=== PATIENT | female | born 1960 | race Caucasian/White ===

== ENCOUNTER 2022-08-22 14:11 | Inpatient (IN) | payer MEDICARE, OTHER ==
[~2022-08-22] VITALS: Ht 157.5 cm; Wt 46.3 kg
--- NOTE | 2022-08-22 14:15 | NUR ---
RECEVED PT 62 YRS FEMALE CAME FROM OUT SIDE LAB FOR SYNCOPY AWAKE AND ALERT
--- NOTE | 2022-08-22 14:35 | NUR ---
INSERTED ANGO CATHETER G 20 ON LT AC BLOOD DROW AND SENT TO LAB
[2022-08-22] MEDS ORDERED: PANTOPRAZOLE 80 MG in IV NS 0.9% 500 ML IV ONE (15:30)
--- NOTE | 2022-08-22 16:00 | NUR ---
STARTED PROTONEX DRIP 8MG/HR AT 52 ML/HR
[2022-08-22 16:01] LABS: BASOPHILS % (AUTO) 0.3 % (0.0-2.0); EOSINOPHILS % (AUTO) 0.1 % (0.0-6.0); LYMPHOCYTES # (AUTO) 1.4 K/uL (0.8-4.8); LYMPHOCYTES % (AUTO) 21.7 % (20.0-44.0); MEAN CORPUSCULAR HGB CONC 34 g/dl (31.0-36.0); MEAN CORPUSCULAR VOLUME 88 fL (82-100); MONOCYTES # (AUTO) 0.6 K/uL (0.1-1.30); MONOCYTES % (AUTO) 9.5 % (2.0-12.0); NEUTROPHILS # (AUTO) 4.4 K/uL (1.8-8.9); NEUTROPHILS % (AUTO) 68.4 % (43.0-81.0); PLATELET COUNT (AUTO) 84 K/uL (150-450); WHITE BLOOD COUNT (AUTO) 6.5 K/uL (4.3-11.0)
[2022-08-22 16:33] LABS: CALCIUM, SERUM 7.7 mg/dL (8.5-10.1); CARBON DIOXIDE 36 mmol/L (21-32); CHLORIDE 96 mmol/L (98-107); GLUCOSE 122 mg/dL (74-106); POTASSIUM 3.6 mmol/L (3.5-5.1); SODIUM SERUM 134 mmol/L (136-145); UREA NITROGEN, BLOOD 31 mg/dL (7-18)
--- NOTE | 2022-08-22 16:43 | NUR ---
MOVE SHEET SUBMITTED.
[2022-08-22 16:44] LABS: HEMATOCRIT 15 % (33-45)
[2022-08-22 16:45] LABS: ALANINE AMINOTRANSFERASE 81 U/L (12-78); ALKALINE PHOSPHATASE 103 U/L (46-116); ASPARTATE AMINOTRANSFERASE 148 U/L (15-37); BILIRUBIN,TOTAL 5.5 mg/dL (0.2-1.0); HEMOGLOBIN 5.1 g/dL (11.5-14.8); TOTAL PROTEIN, SERUM 6.1 g/dL (6.4-8.2)
[2022-08-22 16:47] LABS: ALBUMIN 1.4 g/dL (3.4-5.0)
--- NOTE | 2022-08-22 16:59 | NUR ---
COVID SWAB SENT TO LAB
[2022-08-22] MEDS ORDERED: MVI,10VI2 IV (17:01)
[2022-08-22] MEDS ORDERED: DIPH1TAB PO (17:01)
[2022-08-22] MEDS ORDERED: FAMO10VI IV (17:01)
[2022-08-22] MEDS ORDERED: CHOL100043 PO (17:01)
[2022-08-22] MEDS ORDERED: ALBU18HF2 IH (17:01)
[2022-08-22] MEDS ORDERED: POLY15DR40 EACHEYE (17:01)
[2022-08-22] MEDS ORDERED: TPN ADD IV (17:01)
[2022-08-22] MEDS ORDERED: [UNRECOGNIZED DRUG - CODE] IV (17:01)
[2022-08-22] MEDS ORDERED: CETI-108 PO (17:01)
[2022-08-22] MEDS ORDERED: Z GUARD REMEDY 4 OZ OINT TP PRN (18:00)
[2022-08-22] MEDS ORDERED: MAG HYDROX/AL HYDROX/SIMETH 30 ML UDC PO PRN (18:00)
[2022-08-22] MEDS ORDERED: OCTREOTIDE 500 MCG in IV NS 0.9% 99 ML IV PRN (18:00)
[2022-08-22] MEDS ORDERED: ONDANSETRON HCL/PF 4 MG/2 ML VIAL IVP PRN (18:00)
[2022-08-22] MEDS ORDERED: cetrizine 10 MG TABLET PO PRN (18:00)
[2022-08-22] MEDS ORDERED: MAGNESIUM HYDROXIDE 30 ML UDC PO PRN (18:00)
[2022-08-22] MEDS ORDERED: DIPHENOXYLATE HCL/ATROP SULF 1 UDTAB TABLET PO PRN (18:00)
--- NOTE | 2022-08-22 18:20 | NUR ---
FOR PT SIGN CONSENT FOR BLOOD TRANSFUTION
[2022-08-22] MEDS ORDERED: ALBUTEROL SULFATE 8 GM HFA.AER.AD IH PRN (19:00)
--- NOTE | 2022-08-22 19:29 | NUR ---
WATING FOR MONITER BED
[2022-08-22 20:12] LABS: BAND % (MANUAL) 1 % (0.0-5.0); LYMPHOCYTES % (MANUAL) 20 % (16-48); MONOCYTES % (MANUAL) 7 % (0-11.0); NEUTROPHILS % (MANUAL) 72 (42-76)
--- NOTE | 2022-08-22 23:00 | NUR ---
BLOOD TRANSFUSION COMPLETED, PATIENT STABLE STILL HYPOTENSIVE, ASSYMPTOMATIC.
[2022-08-23] MEDS ORDERED: PANTOPRAZOLE 40 MG VIAL ONE ×2 (00:03→09:25)
[2022-08-23] MEDS: PANTOPRAZOLE 40 MG VIAL IV SCH ×3 (00:05→20:44)
[2022-08-23 01:32] LABS: HEMOGLOBIN 5.7 g/dL (11.5-14.8)
--- NOTE | 2022-08-23 01:32 | NUR ---
h/h 5.7/17
--- NOTE | 2022-08-23 05:00 | NUR ---
SECOND BLOOD TRANSFUSION INITIATED. VSS NO FEVER NOTED
[2022-08-23 05:04] LABS: BASOPHILS % (AUTO) 0.4 % (0.0-2.0); EOSINOPHILS % (AUTO) 0.1 % (0.0-6.0); LYMPHOCYTES # (AUTO) 1.6 K/uL (0.8-4.8); LYMPHOCYTES % (AUTO) 32.7 % (20.0-44.0); MEAN CORPUSCULAR HGB CONC 35 g/dl (31.0-36.0); MEAN CORPUSCULAR VOLUME 87 fL (82-100); MONOCYTES # (AUTO) 0.5 K/uL (0.1-1.30); MONOCYTES % (AUTO) 10.3 % (2.0-12.0); NEUTROPHILS # (AUTO) 2.8 K/uL (1.8-8.9); NEUTROPHILS % (AUTO) 56.5 % (43.0-81.0); PLATELET COUNT (AUTO) 69 K/uL (150-450); WHITE BLOOD COUNT (AUTO) 4.9 K/uL (4.3-11.0)
[2022-08-23 05:19] LABS: RED BLOOD CELL COUNT(AUTO) 1.93 MIL/uL (4.0-5.2)
[2022-08-23 05:20] LABS: HEMATOCRIT 17 % (33-45); HEMOGLOBIN 5.8 g/dL (11.5-14.8)
[2022-08-23 05:32] LABS: CALCIUM, SERUM 7.2 mg/dL (8.5-10.1); CREATININE 0.8 mg/dL (0.6-1.3); MAGNESIUM 2.1 mg/dL (1.8-2.4); PHOSPHORUS 4.1 mg/dL (2.5-4.9); POTASSIUM 3.5 mmol/L (3.5-5.1)
--- NOTE | 2022-08-23 05:45 | NUR ---
TOLERATING BLOOD TRANSFUSION NO COMPLAINTS
--- NOTE | 2022-08-23 06:29 | NUR ---
PATIENT RESTING COMFORTABLY NO COMPLAINTS AT THIS TIME.
--- NOTE | 2022-08-23 07:15 | NUR ---
RECEIVED PT FROM [facility] PT AWAKE AND ALERT NO SOB WATING FOR ROOM
--- NOTE | 2022-08-23 08:00 | NUR ---
PROVIDER AT BED SIDE SPOOKING WITH PT ABOUT PLAN OF CARE
[2022-08-23] MEDS ORDERED: TPN/PPN PER PHARMACY IV PRN (09:00)
[2022-08-23] MEDS ORDERED: ACETAMINOPHEN 325 MG TABLET ONE (09:24)
[2022-08-23] MEDS: ACETAMINOPHEN 325 MG TABLET PO PRN (09:28)
--- NOTE | 2022-08-23 10:00 | NUR ---
PT CONDITION STABLE NO SOB OR DISTRESS PT HAD COLOSTOMY BAG
[2022-08-23] MEDS ORDERED: DEXTROSE 50%-WATER 50 ML DISP.SYRIN IV PRN (10:30)
[2022-08-23] MEDS ORDERED: TPN#1 IV SCH ×3 (11:00)
--- NOTE | 2022-08-23 11:00 | NUR ---
WATING FOR TELMETRY BED
--- NOTE | 2022-08-23 11:49 | NUR ---
STARITED PT ON TPN WITH FILTER TUBE AT 75 ML/HR INFUSED AND PATENT
[2022-08-23] MEDS: BLOOD SUGAR DIAGNOSTIC 1 EACH STRIP IN SCH ×2 (11:56→17:37)
--- NOTE | 2022-08-23 11:58 | NUR ---
BLOODDROW FOR REPEAT CBC
--- NOTE | 2022-08-23 12:05 | NUR ---
GOT BED 111-1. NURSE WILL BE YINKA
[2022-08-23 12:29] LABS: BASOPHILS % (AUTO) 0.4 % (0.0-2.0); EOSINOPHILS % (AUTO) 0.3 % (0.0-6.0); HEMATOCRIT 23 % (33-45); HEMOGLOBIN 8.1 g/dL (11.5-14.8); LYMPHOCYTES # (AUTO) 1.3 K/uL (0.8-4.8); LYMPHOCYTES % (AUTO) 24.5 % (20.0-44.0); MEAN CORPUSCULAR HGB CONC 35 g/dl (31.0-36.0); MEAN CORPUSCULAR VOLUME 88 fL (82-100); MONOCYTES # (AUTO) 0.5 K/uL (0.1-1.30); MONOCYTES % (AUTO) 9.3 % (2.0-12.0); NEUTROPHILS # (AUTO) 3.6 K/uL (1.8-8.9); NEUTROPHILS % (AUTO) 65.5 % (43.0-81.0); PLATELET COUNT (AUTO) 78 K/uL (150-450); WHITE BLOOD COUNT (AUTO) 5.4 K/uL (4.3-11.0)
[2022-08-23 13:19] LABS: BAND % (MANUAL) 1 % (0.0-5.0); LYMPHOCYTES % (MANUAL) 20 % (16-48); MONOCYTES % (MANUAL) 7 % (0-11.0); NEUTROPHILS % (MANUAL) 72 (42-76)
[2022-08-23 14:58] LABS: LYMPHOCYTES % (MANUAL) 15 % (16-48); MONOCYTES % (MANUAL) 4 % (0-11.0); NEUTROPHILS % (MANUAL) 81 (42-76)
--- NOTE | 2022-08-23 15:25 | NUR ---
HAND OFF TAMIKA RN TO ROOM 111-1 STABLE VS ONT TPN INFUSED AND PATENT
[2022-08-23 16:17] VITALS: BP 105/67
--- NOTE | 2022-08-23 16:30 | NUR ---
PREDICTIVE MAINTENANCE TECHNICIAN NOTE REACIVED PATINT ROM ER WITH DX GI BLEED UNDER CAREDR SILVEIRA
--- NOTE | 2022-08-23 16:30 | NUR ---
BINDERY ASSISTANT NOTE RECEIVED PATIENT FROM ER WITH DX GIB UNDER CARE DR SIBLEY ALERT ORIENTED ORIENTED ,PLCED ON TELEMONITOR SR HT 75 , WITH COLOSTOMY LT LOWER ABDOMEN IN PLACE RT CHEST CENTRAL LINE I LUMEN AND LT AC HL INTACT AND FLUSHED WELL ,ON TPN ORDEREDSANDOSTATIN F DRIP ORDERED VS TAKEN NO SOB NOTED AT THIS TIME SAFETY MEASURE PROVIDED
--- NOTE | 2022-08-23 17:14 | NUR ---
FIELD AUTOMOBILE ADJUSTER NOTE PER PATIENT REQUEST HER CODE STATUS CHANGED FROM FULL CODE TO DNR/DNI, DOCTOR NOTIFIED, ORDER RECIVED
[2022-08-23] MEDS: IV NS 0.9% 1,000 ML IV PRN (17:21)
--- NOTE | 2022-08-23 18:07 | NUR ---
LIGIA RN NOTE CONT ON TPN AND IVF ABD SANDOSTATIN DRIP ORDERED
[2022-08-23] MEDS: INSULIN REGULAR, HUMAN 100 UNIT/ML 3 ML VIAL SQ PRN (18:25)
[2022-08-23 20:00] VITALS: BP 99/59
--- NOTE | 2022-08-23 21:32 | NUR ---
LIGIA RN OPENING NOTE PT RECEIVED IN BED, AWAKE, A&O X4, CALM, COOPERATIVE. PT ON RA WITH CURRENT O2SAT OF 100%; NO S/S OF RESP DISTRESS, NO SOB OR COUGH, NON-LABORED AND EQUAL BREATHING. PT REFUSED TO BE ATTACHED TO EXTERNAL MONITOR; NOE PINA NOTIFIED. IV ACCESS ON LAC 20G AND RIGHT SUBCLAVIAN CENTRAL ACCESS, INTACT AND PATENT, FLUSHES EASILY WITH NO RESISTANCE; NS INFUSING AT 75 ML/HR, TPN AT 75 ML/HR, AND SANDOSTATIN AT 5 ML/HR. JEJUNOSTOMY INTACT AND PATENT, DRAINING BROWN AND LIQUID STOOL. BED IN LOWEST POSITION, CALL LIGHT WITHIN REACH, SIDE RAILS UP X2. WILL CONTINUE TO MONITOR THROUGHOUT THE NIGHT.
--- NOTE | 2022-08-23 21:33 | NUR ---
RN NOTE PT REFUSES TO BE CONNECTED TO TELE BOX. NOE PINA INFORMED.
[2022-08-24] VITALS (9 sets, daily range): BP systolic 98–113; BP diastolic 48–71
[2022-08-24] MEDS ORDERED: TPN#2 IV SCH
[2022-08-24] MEDS: BLOOD SUGAR DIAGNOSTIC 1 EACH STRIP IN SCH ×4 (00:28→17:10)
[2022-08-24] MEDS: IV NS 0.9% 1,000 ML IV PRN (05:53)
[2022-08-24 06:35] LABS: PREALBUMIN 12.3 MG/DL (18.0-35.7)
[2022-08-24 06:45] LABS: ALBUMIN 1.2 g/dL (3.4-5.0)
[2022-08-24 06:48] LABS: CALCIUM, SERUM 6.9 mg/dL (8.5-10.1); CREATININE 0.7 mg/dL (0.6-1.3); MAGNESIUM 1.8 mg/dL (1.8-2.4); PHOSPHORUS 2.5 mg/dL (2.5-4.9); POTASSIUM 2.9 mmol/L (3.5-5.1)
--- NOTE | 2022-08-24 06:52 | NUR ---
RN NOTE CRITICAL RECEIVED FROM LAB; ALBUMIN 1.2, NOTED TO BE TRENDING DOWN FROM 1.4 DRAWN ON 08/22. NOE PINA INFORMED, ORDERED FNS CONSULT. ORDER OBTAINED AND CARRIED OUT.
--- NOTE | 2022-08-24 07:07 | NUR ---
LIGIA RN CLOSING NOTE PT REMAINS IN BED, ASLEEP BUT EASILY AROUSABLE, A&O X4, CALM, COOPERATIVE. CONTINUES TO BE ON RA WITH O2SAT RANGING FROM 98%- 100%; NO S/S OF RESP DISTRESS, NO SOB OR COUGH, NON-LABORED AND EQUAL BREATHING. PT REFUSED TO BE ATTACHED TO EXTERNAL MONITOR; NOE PINA NOTIFIED. IV ACCESS ON LAC 20G AND RIGHT SUBCLAVIAN CENTRAL ACCESS, INTACT AND PATENT, FLUSHES EASILY WITH NO RESISTANCE; NS INFUSING AT 75 ML/HR AND TPN AT 75 ML/HR. JEJUNOSTOMY INTACT AND PATENT, DRAINING BROWN AND LIQUID STOOL. ALL DUE MEDS ADMINISTERED DURING THE NIGHT. BED IN LOWEST POSITION, CALL LIGHT WITHIN REACH, SIDE RAILS UP X2. WILL ENDORSE TO DAYSHIFT NURSE TO CONTINUE CARE.
--- NOTE | 2022-08-24 07:27 | NUR ---
RN OPENING NOTE PT RECEIVED IN BED, AWAKE, A&O X4, CALM, COOPERATIVE. PT ON RA; NO S/S OF RESP DISTRESS, NO SOB OR COUGH, NON-LABORED AND EQUAL BREATHING. PT REFUSED TO BE ATTACHED TO EXTERNAL MONITOR; NOE PINA NOTIFIED. IV ACCESS ON LAC 20G AND RIGHT SUBCLAVIAN CENTRAL ACCESS, INTACT AND PATENT, FLUSHES EASILY WITH NO RESISTANCE; NS INFUSING AT 75 ML/HR, TPN AT 75 ML/HR, AND SANDOSTATIN AT 5 ML/HR. JEJUNOSTOMY INTACT AND PATENT, DRAINING BROWN AND LIQUID STOOL. BED IN LOWEST POSITION, CALL LIGHT WITHIN REACH, SIDE RAILS UP X2.
[2022-08-24] MEDS ORDERED: POTASSIUM CHLORIDE 20 MEQ TAB.PRT.SR PO ONE (08:00)
[2022-08-24] MEDS: PANTOPRAZOLE 40 MG VIAL IV SCH ×2 (08:32→20:46)
[2022-08-24] MEDS: ACETAMINOPHEN 325 MG TABLET PO PRN (08:50)
[2022-08-24 09:11] LABS: HEMOGLOBIN 7.1 g/dL (11.5-14.8)
--- NOTE | 2022-08-24 09:54 | NUR ---
WOUND CARE CONSULT: PT REFUSED SKIN ASSESSMENT AT THIS TIME. PT PRESENTS WITH DRESSING TO RT ARM WHICH SHE STATES IS A LARGE SKIN TEAR, PRESENT IN ADMISSION PHOTO. RECOMMENDATIONS MADE FOR SKIN PROTECTION AND WOUND CARE. DISCUSSED WITH NURSING STAFF. PT IS AMBULATORY. MD IN AGREEMENT WITH PLAN OF CARE.
[2022-08-24] MEDS ORDERED: FAT EMULSION 20% 500 ML in PREMIX 1 EA IV SCH (11:00)
[2022-08-24] MEDS: INSULIN REGULAR, HUMAN 100 UNIT/ML 3 ML VIAL SQ PRN ×2 (11:39→17:10)
[2022-08-24] MEDS ORDERED: MAGNESIUM OXIDE 400 MG TABLET PO ONE (12:00)
[2022-08-24] MEDS: Magnesium 1GM/D5W 100ML PREMIX 100 ML IV SCH ×2 (12:19→13:00)
[2022-08-24] MEDS ORDERED: TPN#3 IV SCH ×3 (13:00)
[2022-08-24] MEDS ORDERED: INFLUENZA VACCINE 2022-23 0.5 ML DISP.SYRIN IM ONE (14:00)
--- NOTE | 2022-08-24 18:07 | NUR ---
RN NOTE CALLED BLOOD BANK- BLOOD IS NOT READY
--- NOTE | 2022-08-24 18:34 | NUR ---
RN CLOSING NOTE PT REMAINS IN BED, ASLEEP BUT EASILY AROUSABLE, A&O X4, CALM, COOPERATIVE. CONTINUES TO BE ON RA WITH O2SAT RANGING FROM 98%- 100%; NO S/S OF RESP DISTRESS, NO SOB OR COUGH, NON-LABORED AND EQUAL BREATHING. PT REFUSED TO BE ATTACHED TO EXTERNAL MONITOR. IV ACCESS ON LAC 20G AND RIGHT SUBCLAVIAN CENTRAL ACCESS, INTACT AND PATENT, FLUSHES EASILY WITH NO RESISTANCE; NS INFUSING AT 75 ML/HR AND TPN AT 75 ML/HR. JEJUNOSTOMY INTACT AND PATENT, DRAINING BROWN AND LIQUID STOOL.. BED IN LOWEST POSITION, CALL LIGHT WITHIN REACH, SIDE RAILS UP X2. WILL ENDORSE TO NIGHT NURSE TO CONTINUE CARE.
--- NOTE | 2022-08-24 19:44 | NUR ---
RN OPENING NOTE PT A&OX4, AWAKE AND ALERT. RESPIRATIONS EVEN AND UNLABORED ON RA. SKIN PALE AND DRY. NO ACUTE SIGNS OF DISTRESS. PT AMBULATED TO RESTROOM AND REPLACED COLOSTOMY BAG. PT BACK IN BED WITH SAFETY PRECAUTIONS IN PLACE. LAC 20 G IV INTACT AND RUNNING NS @ 75 ML/HR. R SUBCLAVIAN SINGLE LUMEN INTACT AND RUNNING TPN. BED LOCKED AND AT LOWEST LEVEL WITH 2 RAILS UP. CALL LIGHT WITHIN REACH.
[2022-08-25] MEDS ORDERED: TPN#4 IV SCH (01:00)
--- NOTE | 2022-08-25 01:27 | NUR ---
DISCONTINUED FAT EMULSION AND TPN DUE TO PT REQUEST. PT STATES "I ONLY NEED THE BLOOD. I HAVE TPN AT HOME AND DON'T NEED IT SINCE I'LL BE LEAVING IN THE MORNING."
[2022-08-25 04:00] VITALS: BP 106/57
[2022-08-25] MEDS: BLOOD SUGAR DIAGNOSTIC 1 EACH STRIP IN SCH ×2 (06:00)
[2022-08-25 07:01] LABS: BASOPHILS % (AUTO) 0.5 % (0.0-2.0); EOSINOPHILS % (AUTO) 0.4 % (0.0-6.0); HEMATOCRIT 25 % (33-45); HEMOGLOBIN 8.5 g/dL (11.5-14.8); LYMPHOCYTES % (AUTO) 22.2 % (20.0-44.0); MEAN CORPUSCULAR HGB CONC 34 g/dl (31.0-36.0); MEAN CORPUSCULAR VOLUME 88 fL (82-100); MONOCYTES # (AUTO) 0.4 K/uL (0.1-1.30); MONOCYTES % (AUTO) 8.2 % (2.0-12.0); NEUTROPHILS # (AUTO) 3.2 K/uL (1.8-8.9); NEUTROPHILS % (AUTO) 68.7 % (43.0-81.0); PLATELET COUNT (AUTO) 67 K/uL (150-450); RED BLOOD CELL COUNT(AUTO) 2.84 MIL/uL (4.0-5.2); WHITE BLOOD COUNT (AUTO) 4.6 K/uL (4.3-11.0)
--- NOTE | 2022-08-25 07:16 | NUR ---
RN CLOSING NOTE PT A&OX4. INFORMED PT OF DC PLANNING BUT STATES SHE WANTS TO STAY FOR HER LAB RESULTS. AWAITING ARRANGEMENTS FOR TRANSPORT. SKIN IS WARM AND DRY. RESPIRATIONS UNLABORED ON RA. IV ACCESS AVAILABLE AT R SUBCLAVIAN AND L AC 20G. OSTOMY WNL. NO ACUTE SIGNS OF DISTRESS. BED LOCKED AND AT LOWEST LEVEL. X2 RAILS UP AND CALL OIGHT WITHIN REACH.
[2022-08-25 07:22] LABS: CALCIUM, SERUM 7.6 mg/dL (8.5-10.1); CREATININE 0.6 mg/dL (0.6-1.3); POTASSIUM 2.9 mmol/L (3.5-5.1)
[2022-08-25 08:00] VITALS: BP 100/53
[2022-08-25 08:21] LABS: MAGNESIUM 1.8 mg/dL (1.8-2.4); PHOSPHORUS 2.7 mg/dL (2.5-4.9)
[2022-08-25] MEDS: PANTOPRAZOLE 40 MG VIAL IV SCH (09:05)
--- NOTE | 2022-08-25 10:19 | NUR ---
MS RN NOTE PT IN BED, AWAKE, A&O X4, CALM, COOPERATIVE. PT ON RA; NO S/S OF RESP DISTRESS, NO SOB OR COUGH, NON-LABORED AND EQUAL BREATHING. DENIES PAIN OR DISCOMFORT. IV ACCESS ON LAC 20G AND RIGHT SUBCLAVIAN CENTRAL ACCESS, INTACT AND PATENT, FLUSHES EASILY WITH NO RESISTANCE; NS INFUSING AT 75 ML/HR, JEJUNOSTOMY INTACT AND PATENT, DRAINING BROWN AND LIQUID STOOL. BED IN LOWEST POSITION, CALL LIGHT WITHIN REACH, SIDE RAILS UP X2. WILL CONTINUE TO MONITOR PATIENT FOR DISCHARGE TODAY. WAITING FOR HEMOGLOBIN LEVEL RESULT.
--- NOTE | 2022-08-25 10:21 | NUR ---
RN DISCHARGENOTES PATIENT DISCHARGED TO HOME TODAY PER MD IN STABLE CONDITION. PROVIDED DC INSTRUCTIONS, HEALTH TEACHINGS AND MED RECON LIST. LEFT AC IV ACCESS REMOVED CATH TIP COMPLETE, PRESSURE AND DRESSING APPLIED. RIGHT SUBLCAVIAN SINGLE LUMEN ACCESS WITH CDI DRESSING. PATIENT TO FOLLOW UP WITH HER HEPATOLOGISTAND PCP CARLEE AND WILL MAKE OWN APPOINTMENT. ALL BELONGINGS CHECKED AND RETURNED. ALL PAPERWORKS SIGNED. PATIENT REQUEST TO SKIP PHOTOS OF SKIN ISSUES. PATIENT WHEELED TOLOBBY AND WILL GO HOME VIA [facility].
[2022-08-25 11:29] LABS: LYMPHOCYTES % (MANUAL) 21 % (16-48); MONOCYTES % (MANUAL) 7 % (0-11.0); NEUTROPHILS % (MANUAL) 72 (42-76)
== END 2022-08-25 10:17 | disposition home or self-care (01) | DRG 377 ==
LOC: ER 14:15 → TRANSITION 18:41 → TELE1 08-23 13:55 → TELE-TD 08-23 20:55 → TELE1 08-24 10:20 → MEDSG1 08-24 14:03
PROVIDERS: ADMIT Internal Medicine; ATTEND Nurse Practitioner Acute Care
PROC: 30233N1 Transfusion of Nonautologous Red Blood Cells into Peripheral Vein, Percutaneous Approach (ICD-10-PCS; principal; 2022-08-22)
DX: K92.2 Gastrointestinal hemorrhage, unspecified (principal); E43 Unspecified severe protein-calorie malnutrition; I74.8 Embolism and thrombosis of other arteries; R64 Cachexia; Z68.1 Body mass index [BMI] 19.9 or less, adult; I86.8 Varicose veins of other specified sites; K71.10 Toxic liver disease with hepatic necrosis, without coma; Z20.822 Contact with and (suspected) exposure to COVID-19; J45.909 Unspecified asthma, uncomplicated; Z87.19 Personal history of other diseases of the digestive system; K74.60 Unspecified cirrhosis of liver; Y92.531 Health care provider office as the place of occurrence of the external cause; F32.A Depression, unspecified; Z79.51 Long term (current) use of inhaled steroids; Z79.899 Other long term (current) drug therapy; D64.9 Anemia, unspecified; D50.0 Iron deficiency anemia secondary to blood loss (chronic); W18.30XA Fall on same level, unspecified, initial encounter; T50.995A Adverse effect of other drugs, medicaments and biological substances, initial encounter; Y92.009 Unspecified place in unspecified non-institutional (private) residence as the place of occurrence of the external cause; E88.09 Other disorders of plasma-protein metabolism, not elsewhere classified
CPT/HCPCS: 36415; 71045-TC; 80048-TC; 80061-TC; 80076-TC; 82040-TC; 82962-TC; 83735-TC; 83880; 84100-TC; 84134-TC; 84484-TC; 85025-TC; 85027-TC; 85730-TC; 86850-TC; 87081-TC; A4216; C9113; G0378; J1815; J2354; J3475; J7030; J7040; J7050; P9016; Q2036